=== PATIENT | male | born 1995 | race Caucasian/White ===

== ENCOUNTER 2019-05-01 19:37 | Emergency (ER) | payer OTHER ==
[~2019-05-01] VITALS: Ht 182.9 cm; Wt 100.5 kg
[2019-05-01 20:46] LABS: INFLUENZA A AMPLIFICATION NEGATIVE (NEGATIVE); INFLUENZA B AMPLIFICATION POSITIVE (NEGATIVE)
[2019-05-01] MEDS ORDERED: OSELTAMIVIR PHOSPHATE 75 MG CAP (TAMIFLU) PO ONE (21:30)
[2019-05-01] MEDS ORDERED: OSEL75CA PO (21:45)
[2019-05-01 21:55] VITALS: BP 129/71
== END 2019-05-01 21:57 | disposition home or self-care (01) ==
LOC: M ED 19:37
DX: J10.89 Influenza due to other identified influenza virus with other manifestations (principal); Z87.09 Personal history of other diseases of the respiratory system